=== PATIENT | male | born 1995 | race Caucasian/White ===

== ENCOUNTER 2020-05-04 23:12 | Emergency (ER) | payer BC ==
[~2020-05-04] VITALS: Ht 170.2 cm; Wt 83.5 kg
[2020-05-04 23:34] VITALS: BP 114/71
== END 2020-05-05 00:48 | disposition home or self-care (01) ==
LOC: ER 23:12
DX: M79.672 Pain in left foot (principal)

== ENCOUNTER 2021-08-08 06:12 | Emergency (ER) | payer BC ==
[~2021-08-08] VITALS: Ht 170.2 cm; Wt 82.6 kg
--- NOTE | 2021-08-08 06:50 | NUR ---
PT ROHINI. Joleen LEG CRAMPING AND TINGLING X 5 DAYS. STARTED AFTER GETTING OFF FLIGHT. PT ALERT AND ORIENTED X3. AMBULATORY WITH NON LABORED BREATHING.
[2021-08-08] MEDS ORDERED: CYCLOBENZAPRINE 10 MG TABLET PO ONE (08:30)
[2021-08-08] MEDS ORDERED: CYCLOBENZAPRINE 10 MG TABLET ONE (08:31)
[2021-08-08] MEDS ORDERED: CYCL5TAB PO (09:29)
[2021-08-08] MEDS ORDERED: IBUP-1957 PO (09:29)
[2021-08-08 10:49] VITALS: BP 133/75
--- NOTE | 2021-08-08 10:50 | NUR ---
Patient discharged to home in stable condition. Written and verbal after care instructions given. Patient verbalizes understanding of instruction.
== END 2021-08-08 10:49 | disposition home or self-care (01) ==
LOC: ER 06:12
DX: M79.605 Pain in left leg (principal); Z79.899 Other long term (current) drug therapy
CPT/HCPCS: 93971-TC